=== PATIENT | female | born 1990 | race Caucasian/White ===

== ENCOUNTER 2017-10-07 11:35 | Inpatient (IN) | payer OTHER ==
[~2017-10-07] VITALS: Ht 154.9 cm; Wt 49.3 kg
[2017-10-07 13:54] LABS: BILIRUBIN NEGATIVE (NEGATIVE); BLOOD NEGATIVE (NEGATIVE); CLARITY CLEAR (CLEAR); COLOR YELLOW (YELLOW); GLUCOSE NEGATIVE (NEGATIVE); KETONE NEGATIVE (NEGATIVE); LEUKO ESTERASE TRACE (NEGATIVE); NITRITE NEGATIVE (NEGATIVE); UROBILINOGEN 0.2 E.U./dl (0.2-1.0)
[2017-10-07 14:03] LABS: URINE AMPHETAMINES < 1000 (1000ng/ml); URINE BARBITURATES < 200 (200ng/ml); URINE BENZODIAZEPINES < 200 (200ng/ml); URINE CANNABINOIDS (THC) < 50 (50ng/ml); URINE COCAINE < 300 (300ng/ml); URINE METHADONE < 300 (300ng/ml); URINE OPIATES < 300 (300ng/ml)
[2017-10-07 14:04] LABS: URINE PHENCYCLIDINE < 25 (25ng/ml)
[2017-10-07 14:06] LABS: BACTERIA 2+; RBC 0-2 rbc/hpf (0-2)
[2017-10-07 14:17] VITALS: BP 112/71
[2017-10-07 16:00] VITALS: BP 120/68
[2017-10-07 20:00] VITALS: BP 111/68
[2017-10-07 20:54] LABS: BASO % 0.3 % (0.0-1.0); EOS # 0.2 10*3/uL (0.0-0.4); EOS % 2.3 % (1.0-4.0); HEMATOCRIT 38.8 % (37.0-47.0); HEMOGLOBIN 13.3 g/dl (12.0-16.0); LYMPH % 40.2 % (27.0-41.0); MEAN CORPUSCULAR HGB 32.9 pg (27.0-31.0); MEAN CORPUSCULAR HGB CONC 34.3 g/dl (33.0-37.0); MEAN PLATELET VOLUME 10.3 fl (9.6-12.3); MONO # 0.8 10*3/uL (0.1-1.0); MONO % 11.1 % (3.0-9.0); NEUT # 3.4 10*3/uL (2.3-7.9); NEUT % 45.7 % (47.0-73.0); NUCLEATED RED BLOOD CELL 0.4 % (0.0-0.0); PLATELET COUNT AUTOMATED 175 10*3/uL (130-400); RED BLOOD COUNT 4.04 10*6/uL (4.10-5.10); RED CELL DISTRI WIDTH 12.7 % (0-14.5); WHITE BLOOD COUNT 7.5 10*3/uL (4.8-10.8)
[2017-10-07 21:20] LABS: ALBUMIN 3.4 gm/dl (3.1-4.5); ALKALINE PHOSPHATASE 100 U/L (45-117); BUN 15 mg/dl (7-24); CHLORIDE 104 mmol/L (98-107); POTASSIUM 4.1 mmol/L (3.5-5.1); SGOT/AST 120 IU/L (3-35); SGPT/ALT 225 U/L (12-78); SODIUM 138 mmol/L (136-145); TOTAL PROTEIN 7.3 gm/dL (6.4-8.2)
[2017-10-07 21:26] LABS: BETA-HCG, QUANT < 1.0 mIU/mL (1-3); ETHYL ALCOHOL < 3.0 mg/dl (<3)
[2017-10-08] VITALS: BP 80/47
[2017-10-08 04:00] VITALS: BP 102/49
[2017-10-08 08:00] VITALS: BP 102/48
[2017-10-08 12:00] VITALS: BP 120/51
[2017-10-08 16:00] VITALS: BP 110/47
[2017-10-08 20:00] VITALS: BP 94/60
[2017-10-09] VITALS: BP 82/52
[2017-10-09 04:00] VITALS: BP 82/50
[2017-10-09 08:00] VITALS: BP 80/52
[2017-10-09 12:59] VITALS: BP 86/52
[2017-10-09 16:00] VITALS: BP 107/81
[2017-10-09 20:00] VITALS: BP 110/63
[2017-10-10] VITALS: BP 98/81
[2017-10-10 08:00] VITALS: BP 105/69
[2017-10-10] MEDS ORDERED: ATARAX,VISTARIL50 MG PO (09:32)
[2017-10-10] MEDS ORDERED: MOTRIN 600 MG E4 TAB PO (09:32)
[2017-10-10] MEDS ORDERED: METHOCARBAMOL750 M1 PO (09:32)
[2017-10-10 12:00] VITALS: BP 137/64
[2017-10-10] MEDS ORDERED: ROPINIROLE HYD0.5 MG PO (13:26)
[2017-10-10] MEDS ORDERED: TRAZODONE50 MG PO (13:26)
== END 2017-10-10 13:52 | disposition home or self-care (01) | DRG 897 ==
LOC: 5E 11:35
PROVIDERS: Student in an Organized Health Care Education/Training Program
DX: F11.23 Opioid dependence with withdrawal (principal); I95.9 Hypotension, unspecified; F17.210 Nicotine dependence, cigarettes, uncomplicated; F12.90 Cannabis use, unspecified, uncomplicated; F41.9 Anxiety disorder, unspecified; G25.81 Restless legs syndrome; R76.8 Other specified abnormal immunological findings in serum; Z71.6 Tobacco abuse counseling; Z82.49 Family history of ischemic heart disease and other diseases of the circulatory system

== ENCOUNTER 2018-08-04 12:32 | Emergency (ER) | payer MEDICAID ==
[~2018-08-04] VITALS: Ht 154.9 cm; Wt 56.2 kg
[~2018-08-04 12:32] MED LIST: ATARAX,VISTARIL50 MG PO; METHOCARBAMOL750 M1 PO; MOTRIN 600 MG E4 TAB PO; ROPINIROLE HYD0.5 MG PO; TRAZODONE50 MG PO
[2018-08-04 13:25] LABS: URINE AMPHETAMINES < 1000 (1000ng/ml); URINE BARBITURATES < 200 (200ng/ml); URINE BENZODIAZEPINES < 200 (200ng/ml); URINE CANNABINOIDS (THC) > 50 (50ng/ml); URINE COCAINE < 300 (300ng/ml); URINE METHADONE < 300 (300ng/ml); URINE OPIATES < 300 (300ng/ml); URINE PHENCYCLIDINE < 25 (25ng/ml)
== END 2018-08-04 14:21 | disposition home or self-care (01) ==
LOC: ED 12:32
PROVIDERS: Nurse Practitioner Family
DX: Z02.83 Encounter for blood-alcohol and blood-drug test (principal); F12.90 Cannabis use, unspecified, uncomplicated; F11.90 Opioid use, unspecified, uncomplicated; F14.90 Cocaine use, unspecified, uncomplicated; F17.200 Nicotine dependence, unspecified, uncomplicated

== ENCOUNTER 2018-08-17 19:30 | Inpatient (IN) | payer MEDICAID ==
[~2018-08-17] VITALS: Ht 154.9 cm; Wt 70.9 kg
--- NOTE | ~2018-08-17 | EKG ---
[place], [place] ELECTROCARDIOGRAM REPORT NAME: PATRICK NAZARIO UNIT #: [id number] ROOM: 523 DOCTOR: GERARDO DRAFT REPORT BIRTHDATE: [birth year] [facility] Test Date: 2018-08-17 Test Time: 22:13:07 Pat Name: PATRICK NAZARIO Department: Room: 523 Gender: F Communications Officer: Fanta Chan : 1990 Requested By: JENNIFER GALDAMEZ Order Number: [id number] Reading MD: Jaren Webster MD Measurements Intervals [place] Rate: 94 P: 38 [place]: 122 QRS: 48 QRSD: 70 T: 15 QT: 361 QTc: 452 Interpretive Statements Sinus rhythm NSST-T changes Electronically Signed On 08-18-2018 11:59:29 PST by Jaren Webster MD CM:[email or web address]:ELECTROCARDIOGRAM REPORT [id number] JENNIFER PRASAD DRAFT REPORT JENNIFER GALDAMEZ DO
[2018-08-17 19:42] VITALS: BP 152/83
--- NOTE | 2018-08-17 19:44 | NUR ---
YANELY HARMON APPLIED TO PATIENT.
[2018-08-17 20:32] LABS: BILIRUBIN NEGATIVE (NEGATIVE); BLOOD NEGATIVE (NEGATIVE); CLARITY CLEAR (CLEAR); COLOR YELLOW (YELLOW); GLUCOSE NEGATIVE (NEGATIVE); KETONE NEGATIVE (NEGATIVE); LEUKO ESTERASE NEGATIVE (NEGATIVE); NITRITE NEGATIVE (NEGATIVE); SPECIFIC GRAVITY <= 1.005 (1.005-1.030); UROBILINOGEN 0.2 E.U./dl (0.2-1.0)
[2018-08-17 20:37] LABS: URINE AMPHETAMINES < 1000 (1000ng/ml); URINE BARBITURATES < 200 (200ng/ml); URINE BENZODIAZEPINES < 200 (200ng/ml); URINE CANNABINOIDS (THC) < 50 (50ng/ml); URINE COCAINE > 300 (300ng/ml); URINE METHADONE < 300 (300ng/ml); URINE OPIATES < 300 (300ng/ml)
[2018-08-17 20:44] LABS: URINE PHENCYCLIDINE < 25 (25ng/ml)
[2018-08-17 20:47] LABS: BACTERIA TRACE; EPITHELIAL CELLS 0-2; WBC 0-2 wbc/hpf (0-5)
--- NOTE | 2018-08-17 21:17 | NUR ---
SAMANTHA MONTALVO IN ROOM SPEAKING WITH PATIENT
[2018-08-17 21:34] LABS: ALBUMIN 2.4 gm/dl (3.1-4.5); ALKALINE PHOSPHATASE 47 U/L (45-117); BUN 5 mg/dl (7-24); CREATININE 0.33 mg/dL (0.55-1.02); POTASSIUM 3.7 mmol/L (3.5-5.1); SGOT/AST 80 IU/L (3-35); SGPT/ALT 100 U/L (12-78); SODIUM 152 mmol/L (136-145); TOTAL PROTEIN 5.1 gm/dL (6.4-8.2)
[2018-08-17 21:38] LABS: CHLORIDE 127 mmol/L (98-107)
--- NOTE | 2018-08-17 21:38 | NUR ---
CRITICAL LAB, CALCIUM 5.4
[2018-08-17 21:39] LABS: ACETAMINOPHEN (TYLENOL) < 5.0 ug/ml (10-30)
--- NOTE | 2018-08-17 21:40 | NUR ---
SAV 127, REPORTED TO DR GALDAMEZ
[2018-08-17 21:47] LABS: THYROID STIM HORMONE (HS) 0.666 uIU/ml (0.358-4.75)
[2018-08-17 22:10] VITALS: BP 118/60
--- NOTE | 2018-08-17 23:03 | NUR ---
WOUND PHOTOS TAKEN.... PT ALSO HAS SEVERAL SCRAPES AND ABRASIONS TO LOWER EXTREMITIES. NONE OF WHICH ARE OPEN OR REQUIRE ANY TREATMENT. THEY ARE ALL OLD PER PATIENT.
[2018-08-17 23:06] VITALS: BP 116/72
--- NOTE | 2018-08-17 23:30 | NUR ---
PT HAS FRIENDS AT BEDSIDE.
[2018-08-18 00:10] VITALS: BP 122/59
--- NOTE | 2018-08-18 00:10 | NUR ---
A 28, admitted to 5E, under the services of PATRICK Marte DO with a diagnosis of COCAINE ABUSE, ALCOHOL INTOXICATION. Chief complaint is ALCOHOL INTOXICATION. Patient arrived via stretcher from ER. Monitor applied. Initial assessment completed. Vital signs taken and recorded. PATRICK MARTE DO notified of admission to the unit. Orders received. See assessment for past medical history, medications and allergies. Patient and/or family oriented to unit. [facility]LO[facility] visitation policy reviewed. Clothing/patient valuable form completed. KAYDEN FISHMAN
--- NOTE | 2018-08-18 00:34 | NUR ---
PT CLOTHING, WHITE METAL NECKLACE ON HER NECK, AND POLICE CITATION SENT WITH PATIENT UPSTAIRS.
--- NOTE | 2018-08-18 01:00 | NUR ---
PATIENT IN ROOM SCREAMING AT HER BOYFRIEND ON THE PHONE. REFUSING HER WOUNDS TO BE SEEN AND MEASURED AT THIS TIME.
[2018-08-18] MEDS ORDERED: BUSPAR5 MG PO (02:31)
[2018-08-18] MEDS ORDERED: PROBIOTIC250 MG PO (02:32)
[2018-08-18] MEDS ORDERED: HYDR100C11 PO (02:33)
--- NOTE | 2018-08-18 02:50 | NUR ---
PATIENT UPSET YELLING ON THE PHONE WITH BOYFRIEND. PT STATES HE SPENT VALENTINES DAY SELLING DRUGS INSTEAD OF SPENDING TIME WITH HER. PATIENT VERY UPSET,CRYING. WILL CONTINUE TO MONITOR.
--- NOTE | 2018-08-18 03:00 | NUR ---
PATIENT NOT WANTING MOTHER TO HAVE PASSWORD. KEEPS TELLING HER MOTHER THAT SHE CAN NOT REMEMBER THE PASSWORD AND TO CALL THE NURSE TO GET THE PASSWORD. WILL NOT TELL MOTHER SHE DOES NOT WANT HER TO HAVE THE PASSWORD.
--- NOTE | 2018-08-18 03:21 | NUR ---
PATIENT MEDICATED WITH TYLENOL FOR COMPLAINTS OF HEADACHE. WILL CHECK EFFECTIVENESS
--- NOTE | 2018-08-18 03:23 | NUR ---
PATRICK NAZARIO [id number] Please refer to the physician's history and physical for past medical history, comorbid conditions, and allergies. Diagnosis: COCAINE ABUSE ALCOHOL INTOXICATION HYPERNATREMIA Emil Score: 22,LOW OR NO RISK WOUND DESCRIPTIONS: Patient has excoriation noted to abdomen, right upper leg and bilateral arms. No drainage noted. No redness surrounding the areas. Patient is unsure how these areas occured. Patient is denying treatment at this time and patient is refusing follow up treatment in a wound care center upon discharge. Surface the patient is resting on: Isoflex SKIN PREVENTION RECOMMENDATION: 1. Pressure redistribution support surface as appropriate 2. Elevate heels 3. Remove boots/TEDS every shift and reapply 4. Head of bed 30 degrees as tolerated 5. Assess nutrition and hydration 6. Manage moisture 7. Avoid the use of containment devices while in bed 8. Use absorptive products on surfaces limit layers of linens on bed 9. Turn and reposition every 1-2 hours in bed and every 1 hour in chair as tolerated 10. Weight shifts every 15 minutes while up in chair 11. Offloading with pillows or device to keep heels elevated off bed 12. Monitor skin at least every shift 13. Inspect under medical devices twice a day WOUND TREATMENT RECOMMENDATIONS: Cleanse areas to bilateral arms, right upper leg, and abdomen with soap and water and apply aqauphor daily.
[2018-08-18] MEDS ORDERED: QUETIAPINE FUM300 M1 PO (03:53)
[2018-08-18] MEDS ORDERED: BENZTROPINE MESY2 MG PO (03:58)
[2018-08-18] MEDS ORDERED: LAMOTRIGINE25 M1 PO (03:59)
[2018-08-18 07:18] LABS: ALBUMIN 3.2 gm/dl (3.1-4.5); ALKALINE PHOSPHATASE 62 U/L (45-117); BUN 10 mg/dl (7-24); CHLORIDE 111 mmol/L (98-107); CHOLESTEROL 102 mg/dL (<200); CREATININE 0.73 mg/dL (0.55-1.02); HDL CHOLESTEROL 54 mg/dl (40-60); LDL CHOLESTEROL 39 mg/dL (9-159); PHOSPHOROUS 3.5 mg/dL (2.5-4.9); SGOT/AST 68 IU/L (3-35); SGPT/ALT 127 U/L (12-78); SODIUM 144 mmol/L (136-145); TOTAL PROTEIN 6.6 gm/dL (6.4-8.2); TRIGLYCERIDES 46 mg/dl (<150); VLDL CHOLESTEROL 9 mg/dL (6-40)
[2018-08-18 07:20] LABS: BASO % 0.4 % (0.0-1.0); EOS % 0.2 % (1.0-4.0); HEMATOCRIT 37.4 % (37.0-47.0); HEMOGLOBIN 12.7 g/dl (12.0-16.0); LYMPH # 2.8 10*3/uL (1.3-4.4); LYMPH % 33.9 % (27.0-41.0); MEAN CORPUSCULAR HGB 31.9 pg (27.0-31.0); MEAN PLATELET VOLUME 10.1 fl (9.6-12.3); MONO # 0.6 10*3/uL (0.1-1.0); MONO % 6.9 % (3.0-9.0); NEUT # 4.9 10*3/uL (2.3-7.9); NEUT % 58.5 % (47.0-73.0); PLATELET COUNT AUTOMATED 250 10*3/uL (130-400); RED BLOOD COUNT 3.98 10*6/uL (4.10-5.10); RED CELL DISTRI WIDTH 14.3 % (0-14.5); WHITE BLOOD COUNT 8.3 10*3/uL (4.8-10.8)
[2018-08-18 07:37] LABS: VITAMIN D, 25-HYDROXY 28.5 ng/mL (30-100)
--- NOTE | 2018-08-18 08:30 | NUR ---
Patient resting quietly with no c/o discomfort. Respirations easy and regular. Vital signs stable. No overt distress. KAYDEN JOEL R
--- NOTE | 2018-08-18 10:24 | NUR ---
Dr. Valdivia notified of wound care recommendations.
[2018-08-18] MEDS ORDERED: VITAMIN D32000 UNI1 PO (11:11)
--- NOTE | 2018-08-18 11:24 | NUR ---
Discharge instructions reviewed with patient/family. Patient receptive and verbalizes understanding. Follow-up care arranged. Written instructions given to patient/family. KAYDEN JOEL
--- NOTE | 2018-08-18 11:30 | NUR ---
Marketing Specialist in to talk to patient. Patient states lives at HOME with MOTHER. There are NO steps in the home. Physician: ARTHUR Pharmacy: [facility] Home health services: NONE Patient's level of ADLs: INDEPENDENT Patient has working utilities: YES DME: NONE Follow-up physician's appointment after d/c: WILL BE MADE BY HOSPITALIST NURSE DIRECTOR ON DISCHARGE Does patient want to access PORTAL?: NO Discharge plan PT STATES SHE LIVES WITH HER MOTHER AND IS INDEPENDENT IN CARE. DENIES ANY NEEDS AFTER DISCHARGE. STATES SHE WILL HAVE A RIDE HOME. WILL CONTINUE TO FOLLOW.. RGEG GUERRERO
== END 2018-08-18 11:24 | disposition home or self-care (01) | DRG 640 ==
LOC: ED 19:30 → EDHOLD 23:08 → 5E 23:08
PROVIDERS: Internal Medicine; Nurse Practitioner Family; ADMIT Internal Medicine
DX: E83.51 Hypocalcemia (principal); E43 Unspecified severe protein-calorie malnutrition; E87.0 Hyperosmolality and hypernatremia; E87.2 Acidosis; F10.929 Alcohol use, unspecified with intoxication, unspecified; F14.10 Cocaine abuse, uncomplicated; F17.210 Nicotine dependence, cigarettes, uncomplicated; T68.XXXA Hypothermia, initial encounter; G47.00 Insomnia, unspecified; E87.8 Other disorders of electrolyte and fluid balance, not elsewhere classified; R74.0 Nonspecific elevation of levels of transaminase and lactic acid dehydrogenase [LDH]; R76.8 Other specified abnormal immunological findings in serum; F41.9 Anxiety disorder, unspecified; Z71.6 Tobacco abuse counseling; Z82.49 Family history of ischemic heart disease and other diseases of the circulatory system; Z79.899 Other long term (current) drug therapy; Z68.29 Body mass index [BMI] 29.0-29.9, adult

== ENCOUNTER 2018-08-22 08:59 | Emergency (ER) | payer MEDICAID ==
[~2018-08-22] VITALS: Ht 154.9 cm; Wt 56.7 kg
[~2018-08-22 08:59] MED LIST changes: +BENZTROPINE MESY2 MG PO; +BUSPAR5 MG PO; +HYDR100C11 PO; +LAMOTRIGINE25 M1 PO; +PROBIOTIC250 MG PO; +QUETIAPINE FUM300 M1 PO; +VITAMIN D32000 UNI1 PO
[2018-08-22] MEDS ORDERED: FLONASE ALLERG9.9 ML NAS (09:17)
[2018-08-22] MEDS ORDERED: PREDNISONE10 MG PO (09:17)
[2018-08-22] MEDS ORDERED: CLARITIN10 MG PO (09:17)
== END 2018-08-22 10:09 | disposition home or self-care (01) ==
LOC: ED 08:59
DX: J02.0 Streptococcal pharyngitis (principal); F17.200 Nicotine dependence, unspecified, uncomplicated; Z79.899 Other long term (current) drug therapy

== ENCOUNTER 2022-05-29 16:06 | Emergency (ER) | payer MEDICAID ==
[~2022-05-29] VITALS: Wt 61.2 kg
[~2022-05-29 16:06] MED LIST changes: +CLARITIN10 MG PO; +FLONASE ALLERG9.9 ML NAS; +PREDNISONE10 MG PO
[2022-05-29] MEDS ORDERED: IBUPROFEN600 MG PO (19:53)
[2022-05-29] MEDS ORDERED: AMOXICILLIN500 M2 PO (19:53)
[2022-05-29] MEDS ORDERED: CORTISPORIN SUS10 ML OT (19:53)
[2022-05-29] MEDS ORDERED: FLONASE ALLERG9.9 ML NAS (19:57)
== END 2022-05-29 19:55 | disposition home or self-care (01) ==
LOC: ED 16:06
DX: H66.92 Otitis media, unspecified, left ear (principal); H60.92 Unspecified otitis externa, left ear; Z79.899 Other long term (current) drug therapy; F17.200 Nicotine dependence, unspecified, uncomplicated

== ENCOUNTER 2023-04-12 11:53 | Emergency (ER) | payer OTHER ==
[~2023-04-12] VITALS: Ht 157.4 cm; Wt 57.2 kg
[~2023-04-12 11:53] MED LIST changes: +AMOXICILLIN500 M2 PO; +CORTISPORIN SUS10 ML OT; +IBUPROFEN600 MG PO
[2023-04-12] MEDS ORDERED: AMOX-CLAV 875-1 EACH PO (13:36)
[2023-04-12] MEDS ORDERED: NAPROSYN500 MG PO (13:36)
== END 2023-04-12 13:28 | disposition home or self-care (01) ==
LOC: ED 11:53
DX: K11.3 Abscess of salivary gland (principal); F17.200 Nicotine dependence, unspecified, uncomplicated